=== PATIENT | male | born 1985 | race Two or more races ===

== ENCOUNTER 2018-11-09 13:44 | Emergency (ER) | payer OTHER ==
[~2018-11-09] VITALS: Ht 172.7 cm; Wt 90.0 kg
[~2018-11-09 13:44] MED LIST: AMOXICILLIN500 MG OR; DARVOCET-N 100100 MG OR; LORTAB 7.5 PO
[2018-11-09 15:02] VITALS: BP 121/87
== END 2018-11-09 15:02 | disposition home or self-care (01) ==
LOC: ED 13:44
DX: S93.401A Sprain of unspecified ligament of right ankle, initial encounter (principal); X50.0XXA Overexertion from strenuous movement or load, initial encounter; Y93.89 Activity, other specified; Y92.89 Other specified places as the place of occurrence of the external cause; Y99.0 Civilian activity done for income or pay